=== PATIENT | male | born 1985 | race Caucasian/White ===

== ENCOUNTER 2017-02-14 14:05 | Emergency (ER) | payer SELFPAY ==
[2017-02-14 14:47] VITALS: BP 123/58
--- OUTSIDE RECORDS SUMMARY | 2017-02-14 15:25 | XMS REPORT | Continuity of Care Document ---
:1985 Author Organization [facility] ([facility]) Address [address] [place] [address] Phone [phone] Care Team Providers Name Role Phone Unavailable Primary Care Provider Unavailable Source Comments This disclosure is being made pursuant to the Care Everywhere program, applicable federal and state laws, and may not contain all informaitonavailable regarding this patient.[facility] ([facility]) Active Allergies and Adverse Reactions Not on File Current Medications Not on file Active Problems Not on file Social History Tobacco Use Types Packs/Day Years Used Date Never Assessed Plan of Care Health Maintenance Due Date Last Done Comments Hepatitis B Vaccine (1 of 3 - Primary Series) 1985 Tdap Vaccine 1994 Lipid Disorder Screening 2001 MMR Vaccine 2001 Td Vaccine 2001 Varicella Vaccine (1 of 2 - Adult - No Evidence of 2001 Immunity) Influenza Vaccine: Seasonal (#1) 06/14/2016 Results from Last 3 Months Not on file
--- NOTE | 2017-02-14 16:39 | ERNOTE ---
Psychological HPI - Date Date of Service: 02/14/17 - pt was seen at 1410 today - General Chief Complaint: Anxiety Source: Reports: patient - Immun/Allergies/Home Medications Allergies/Adverse Reactions: Allergies Penicillins Allergy (Severe, Verified 02/14/17 14:47) Anaphylaxis amoxicillin [Amoxicillin] Allergy (Verified 02/14/17 14:47) Home Medications: HOME MEDICATIONS ALPRAZolam [Xanax] 2 mg PO TID PRN 11/11/16 [Last Taken Unknown] Carisoprodol [Soma] 350 mg PO QID 11/11/16 [Last Taken Unknown] - History of Present Illness Narrative: Patient comes into the emergency room asking for his Xanax. Patient states that his doctor, Dr. Groves gives him 2 mg of Xanax 3 times a day he has been taking this dose for the past 10 years. I asked the patient when he saw Dr. Groves he is unable to tell me when it was, in fact this patient is unable to tell me if Dr. Groves is a male or female. Time Seen by Provider: 02/14/17 15:05 Review of Systems - Review of Systems Constitutional: Present: other - patient repeatedly asks for, "I need my Xanax and " Respiratory: Present: no symptoms reported Cardiology: Present: no symptoms reported Neurological: Present: other - patient states he feels shaky. - Patient's Past Medical History Patient History - Medical: Anxiety Patient History - Cardiac/Respiratory: No pertinent hx Patient History - Cancer: No Hx of Cancer Patient History - Surgical Procedures: Other Patient History - Other: None - Social History Living Situations: other Abuse History: No History of abuse Psych History: Hx of Anxiety, Current tx/ever been on anti-depressants or anti- anxiety meds Does anyone smoke in the home?: Yes Alcohol Use: occasionally Drug Use: none - Immunizations Immunizations Up to Date: Yes Hx Pneumococcal Vaccination: More Information Required to Determine History of Influenza Vaccine: More Information Required to Determine Physical Exam - Physical Exam General Appearance: Present: wd/wn, alert, no apparent distress Ears, Nose, Throat: Present: normal ENT inspection Neck: Present: normal inspection, nontender Respiratory: Present: no respiratory distress, normal breath sounds, no accessory muscle use, chest nontender, lungs clear Cardiovascular/Chest: Present: regular rate, rhythm, no murmur, normal peripheral pulses Neurological Exam: Present: other - this patient is completely neurologically normal her when I enter the room patient starts to shake voluntarily. Patient is distracted he does not have any tremors or shaking. I suddenly surprised the patient by opening the door he is resting comfortably on the exam table without any tremors whatsoever. ED Progress - Vital Signs Patient's Vital Signs:: I have reviewed the patient's vital signs. Vital Signs: Vital Signs 02/14/17 14:29 Temperature 36.4 C L Pulse Rate 98 Respiratory 20 Rate Blood Pressure 123/58 O2 Sat by Pulse 99 Oximetry - Progress/Reassessment Chief Complaint: Anxiety Plan - Plan Plan: Discussed this case with the patient, I informed him that I would need to know what is in his system before I can give him a controlled substance. I asked for him to submit a urine and blood for alcohol content and controlled substance content. Patient flat out refused and decided to sign out AGAINST MEDICAL ADVICE and go to another facility. This patient's medical screening examination revealed the patient was medically stable at this time. Departure Clinical Impression: Drug-seeking behavior - Departure Disposition: Against medical advice Condition: Fair
== END 2017-02-14 15:24 | disposition left against medical advice (07) ==
LOC: ER 14:05
DX: Z76.5 Malingerer [conscious simulation] (principal); Z53.29 Procedure and treatment not carried out because of patient's decision for other reasons

== ENCOUNTER 2017-04-28 16:14 | Emergency (ER) | payer SELFPAY ==
[2017-04-28 16:22] VITALS: BP 103/30
[2017-04-28] MEDS ORDERED: NORMAL SALINE 1,000 ML IV ONE (16:36)
--- OUTSIDE RECORDS SUMMARY | 2017-04-28 16:43 | XMS REPORT | Continuity of Care Document ---
:1985 Author Organization [facility] ([facility]) Address [place] [address] Phone [phone] Care Team Providers Name Role Phone Unavailable Primary Care Provider Unavailable Source Comments This disclosure is being made pursuant to the Care Everywhere program, applicable federal and state laws, and may not contain all informaitonavailable regarding this patient.[facility] ([facility]) Active Allergies and Adverse Reactions Not on [...]
[2017-04-28 16:48] LABS: Hemoglobin 15.6 gm/dL (13.5-18.0); Mean Cell Volume 89.5 fl (78-100); Mean Corpuscular Hemoglobin 30.4 pg (27-31); Mean Corpuscular Hgb Conc 33.9 g/dl (32-36); Mean Platelet Volume 9.7 fl (6.0-9.5); Neutrophil # 4.3 K/mm3 (1.3-6.0); Neutrophil % 49.2 % (42-75.0); Platelet Count 271 K/mm3 (150-450); Red Blood Count 5.14 M/mm3 (4.7-6.0); Red Cell Distribution Width 12.9 % (11.5-14.0); White Blood Count 8.8 K/mm3 (4.0-10.5)
--- NOTE | 2017-04-28 16:59 | ERNOTE ---
Medical Problem HPI - Narrative Date of Service: 04/28/17 - General Chief Complaint: General Assessment Time Seen by Provider: 04/28/17 16:26 Source: patient Exam Limitations: no limitations - Immun/Allergies/Home Medications Immunizations: IMMUNIZATION HX Immunizations Up to Date Yes History of Influenza Vaccine No Hx Pneumococcal Vaccination No Allergies/Adverse Reactions: Allergies Penicillins Allergy (Severe, Verified 04/28/17 16:23) Anaphylaxis amoxicillin [Amoxicillin] Allergy (Verified 04/28/17 16:23) Home Medications: HOME MEDICATIONS ALPRAZolam [Xanax] 2 mg PO TID PRN 11/11/16 [Last Taken Unknown] Carisoprodol [Soma] 350 mg PO QID 11/11/16 [Last Taken Unknown] - History of Present History Narrative: Pt. comes in with c/o feeling weak and shaky after he was at work today. Pt. states that he only drinks pepsi and has not had water in 3 days. Pt. states that he does this at least once a year and improves with IV fluids. Review of Systems - Review of Systems Constitutional: Present: fatigue, malaise. Absent: recent illness, fever, chills, weight loss EYE: Present: no symptoms reported ENT: Present: no symptoms reported Respiratory: Present: no symptoms reported. Absent: shortness of breath, cough , wheezing Cardiology: Present: no symptoms reported. Absent: chest pain, palpitations, edema Gastrointestinal/Abdominal: Present: no symptoms reported. Absent: nausea, vomiting, diarrhea, abdominal pain Genitourinary: Present: no symptoms reported Musculoskeletal: Present: no symptoms reported. Absent: back pain, joint pain Skin: Present: no symptoms reported Neurological: Present: tremors. Absent: dizziness/light-headedness, numbness, tingling All Other Systems: All systems neg except as marked - Patient's Past Medical History Patient History - Medical: Anxiety Patient History - Cardiac/Respiratory: Asthma Patient History - Cancer: No Hx of Cancer Patient History - Surgical Procedures: Other Patient History - Other: None - Social History Living Situations: home Abuse History: No History of abuse Psych History: Hx of Anxiety, Current tx/ever been on anti-depressants or anti- anxiety meds Does anyone smoke in the home?: Yes Smoking Status: Current every day smoker Alcohol Use: occasionally Drug Use: none - Immunizations Immunizations Up to Date: Yes Hx Pneumococcal Vaccination: No History of Influenza Vaccine: No Physical Exam - Physical Exam General Appearance: Present: wd/wn, alert, no apparent distress Eye Exam: Normal inspection: bilateral, PERRL: bilateral, EOMI: bilateral Respiratory: Present: no respiratory distress, normal breath sounds, no accessory muscle use, chest nontender, lungs clear Cardiovascular/Chest: Present: regular rate, rhythm, no murmur, normal peripheral pulses Back Exam: Present: normal inspection, normal range of motion, no CVA tenderness , no vertebral tenderness Extremity Exam: Present: normal inspection, non-tender, normal range of motion, no edema Neurological Exam: Present: alert, oriented, no motor/sensory deficits, other - anxious Skin Exam: Present: normal color, warm/dry. Absent: pallor, skin rash ED Progress - Date and Time Seen: Date and Time: 04/28/17 16:55 pt. 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 Stressed to pt. that we need the tests to prove that he is just dehydrated and that there is not something worse. Pt. chose to leave [facility] and was encouraged t return after he picked up his daughter. - Vital Signs Patient's Vital Signs:: I have reviewed the patient's vital signs. Vital Signs: Vital Signs 04/28/17 16:18 Temperature 36.5 C Pulse Rate 105 H Respiratory 20 Rate Blood Pressure 103/30 O2 Sat by Pulse 100 Oximetry - Progress/Reassessment Chief Complaint: General Assessment Departure - Departure Clinical Impression: Malaise Disposition: Against medical advice Condition: Fair Referrals: Darline Richey, PAC [Primary Care Provider] -
[2017-04-28 17:09] LABS: Albumin * 4.1 gm/dl (3.4-5.0); Anion Gap 10.8 mmol/L (6.8-13.8); BUN/Creatinine Ratio 12.5 (9.0-21.6); Bilirubin, Total 0.5 mg/dL (0.0-1.1); Ca. Corrected For Albumin 8.8 mg/dL (8.4-10.2); Calcium * 9.2 mg/dL (7.9-10.9); Carbon Dioxide 30.3 mmol/L (24-32.6); Potassium 4.1 mmol/L (3.4-4.6); Total Protein 7.7 gm/dL (6.2-8.2)
== END 2017-04-28 16:56 | disposition left against medical advice (07) ==
LOC: ER 16:14
DX: R53.83 Other fatigue (principal); R53.1 Weakness; F17.210 Nicotine dependence, cigarettes, uncomplicated

== ENCOUNTER 2017-06-06 08:12 | Emergency (ER) | payer OTHER ==
[2017-06-06] MEDS ORDERED: KETOROLAC TROMETHAMINE 30 MG/ML VIAL IV ONE (08:59)
[2017-06-06] MEDS ORDERED: ONDANSETRON HCL/PF 2 MG/ML VIAL IV ONE (08:59)
[2017-06-06] MEDS ORDERED: NORMAL SALINE 1,000 ML IV ONE (08:59)
[2017-06-06] MEDS ORDERED: ONDANSETRON HCL/PF 2 MG/ML VIAL ONE (09:03)
[2017-06-06] MEDS ORDERED: KETOROLAC TROMETHAMINE 30 MG/ML VIAL ONE (09:03)
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
--- OUTSIDE RECORDS SUMMARY | 2017-06-06 09:21 | XMS REPORT | Summary of Care ---
:1985 Author Organization [facility] Address [address] [place] [id number] Care Team Providers Name Role Phone Carmencita Groves Primary Care Physician Encounter Date(s): 03/04/17 - 03/04/[address] [phone]- [place] Discharge Disposition: 01 Discharged to Home or Self Care Attending Physician: Carmencita Groves DNP Referring Physician: Carmencita Groves DNP Vital Signs No data available for this section Problem List Condition Effective Dates Status Health Status Informant Asthma(Confirmed) Active Cervical spondylosis(Confirmed) Active Muscle spasm(Confirmed) Active PTSD - Post-traumatic stress Active disorder(Confirmed) 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) Allergies, Adverse Reactions, Alerts Substance Reaction Severity Status acetaminophen C/O - vomiting Active amoxicillin Active Excedrin Migraine C/O - vomiting Active Nausea penicillin Active Zoloft Suicidal thoughts Active Medications albuterol 90 mcg/inh inhalation powder 1 puff(s), Inhale, q4hr interval, PRN as needed for shortness of breath or wheezing, # 18 gm, 0 Refill(s), Start Date: 06/07/16 11:44:00 CDT, Pharmacy: [place], [place] Start Date: 06/07/16 Stop Date: 06/29/16 Status: Completedalbuterol 90 mcg/inh inhalation powder 1 puff(s), Inhale, q4hr interval, PRN as needed for shortness of breath or wheezing, # 18 gm, 1 Refill(s), Start Date: 06/29/16 14:46:23 CDT, Pharmacy: [place], [place] Start Date: 06/29/16 Stop Date: 08/04/16 Status: Completedalbuterol 90 mcg/inh inhalation powder 1 puff(s), Inhale, q4hr interval, PRN as needed for shortness of breath or wheezing, # 18 gm, 0 Refill(s), Start Date: 08/04/16 12:27:43 CDT, Pharmacy: [place] Start Date: 08/04/16 Stop Date: 09/07/16 Status: Completedalbuterol 90 mcg/inh inhalation powder 1 puff(s), Inhale, q4hr interval, PRN as needed for shortness of breath or wheezing, # 18 gm, 0 Refill(s), Start Date: 09/07/16 13:41:15 CDT, Pharmacy: [place] Start Date: 09/07/16 Status: Orderedalbuterol HFA 0 Refill(s), Start Date: 10/21/14 11:22:00 BEHAVIOR CLINICIAN Start Date: 10/21/14 Stop Date: 04/04/15 Status: DiscontinuedALPRAZolam 2 mg oral tablet 1 tab(s), Oral, TID, PRN for anxiety, # 90 tab(s), 2 Refill(s), Start Date: 07/29 13:06:35 CDT, called to pharmacy (Rx) Start Date: 07/23/15 Stop Date: 10/15/15 Status: CompletedALPRAZolam 2 mg oral tablet 1 tab(s), Oral, TID, PRN for anxiety, # 90 tab(s), 1 Refill(s), Start Date: 12:11:52 CDT, called to pharmacy (Rx) Start Date: 05/28/15 Stop Date: 07/23/15 Status: CompletedALPRAZolam 2 mg oral tablet 1 tab(s), Oral, TID, PRN for anxiety, # 10 tab(s), 0 Refill(s), Start Date: 16:35:00 CDT, called to pharmacy (Rx) Start Date: 02/09/17 Status: OrderedALPRAZolam 2 mg oral tablet 1 tab(s), Oral, TID, PRN for anxiety, # 90 tab(s), 0 Refill(s), Start Date: 13:54:00 CDT Start Date: 04/04/15 Stop Date: 04/28/15 Status: CompletedALPRAZolam 2 mg oral tablet 1 tab(s), Oral, TID, PRN for anxiety, # 90 tab(s), 0 Refill(s), Start Date: 12:08:36 CDT, called to pharmacy (Rx) Start Date: 04/13/16 Stop Date: 05/11/16 Status: CompletedALPRAZolam 2 mg oral tablet 1 tab(s), Oral, TID, PRN for anxiety, # 90 tab(s), 1 Refill(s), Start Date: 8:59:49 CDT, called to pharmacy (Rx) Start Date: 05/11/16 Stop Date: 06/29/16 Status: CompletedALPRAZolam 2 mg oral tablet 1 tab(s), Oral, TID, PRN for anxiety, # 90 tab(s), 1 Refill(s), Start Date: 12:39:01 CDT, called to pharmacy (Rx) Start Date: 04/28/15 Stop Date: 05/28/15 Status: CompletedALPRAZolam 2 mg oral tablet 1 tab(s), Oral, TID, PRN for anxiety, # 90 tab(s), 0 Refill(s), Start Date: 12:28:14 CDT, called to pharmacy (Rx) Start Date: 08/04/16 Stop Date: 09/07/16 Status: CompletedALPRAZolam 2 mg oral tablet 1 tab(s), Oral, TID, PRN for anxiety, # 90 tab(s), 0 Refill(s), Start Date: 15:01:03 CDT, called to pharmacy (Rx) Start Date: 06/29/16 Stop Date: 08/04/16 Status: CompletedALPRAZolam 2 mg oral tablet 1 tab(s), Oral, TID, PRN for anxiety, # 90 tab(s), 0 Refill(s), Start Date: 02/28 8:06:01 CDT, called to pharmacy (Rx) Start Date: 4/4/17 Stop Date: 03/17/17 Status: OrderedALPRAZolam 2 mg oral tablet 1 tab(s), Oral, TID, PRN for anxiety, # 90 tab(s), 5 Refill(s), Start Date: 12/29 16:47:46 BEHAVIOR CLINICIAN, called to pharmacy (Rx) Start Date: 10/15/15 Stop Date: 04/13/16 Status: CompletedALPRAZolam 2 mg oral tablet 1 tab(s), Oral, TID, PRN for anxiety, X 5 days, # 15 tab(s), 0 Refill(s), Start Date: 09/07/16 13:39:46 CDT, called to pharmacy (Rx) Start Date: 09/07/16 Stop Date: 09/07/16 Status: CompletedALPRAZolam 2 mg oral tablet 1 tab(s), Oral, TID, PRN for anxiety, X 30 days, # 90 tab(s), 5 Refill(s), Start Date: 09/07/16 15:24:08 CDT Start Date: 09/07/16 Stop Date: 02/15/17 Status: CompletedALPRAZolam 2 mg oral tablet 1 tab(s), Oral, TID, PRN for anxiety, 0 Refill(s), Start Date: 10/21/14 11:24: 00 BEHAVIOR CLINICIAN Start Date: 10/21/14 Stop Date: 04/04/15 Status: Discontinuedgabapentin 300 mg oral capsule 1 cap(s), Oral, TID, # 90 cap(s), 0 Refill(s), Start Date: 11/22/14 11:39:38 BEHAVIOR CLINICIAN , Pharmacy: [place], [place] Start Date: 11/22/14 Stop Date: 04/04/15 Status: Discontinuedgabapentin 300 mg oral capsule 1 cap(s), Oral, TID, # 90 cap(s), 3 Refill(s), Start Date: 07/23/15 12:25:19 CDT , Pharmacy: [place] Start Date: 07/23/15 Stop Date: 10/15/15 Status: Completedgabapentin 300 mg oral capsule 1 cap(s), Oral, TID, # 90 cap(s), 3 Refill(s), Start Date: 07/01/15 15:35:43 CDT , Pharmacy: [place] Start Date: 07/01/15 Stop Date: 07/23/15 Status: Completedgabapentin 300 mg oral capsule 1 cap(s), Oral, TID, # 90 cap(s), 0 Refill(s), Start Date: 04/04/15 13:54:59 CDT , Pharmacy: [place] Start Date: 04/04/15 Stop Date: 04/28/15 Status: Completedgabapentin 300 mg oral capsule 1 cap(s), Oral, TID, # 90 cap(s), 1 Refill(s), Start Date: 05/28/15 12:10:15 CDT , Pharmacy: [place] Start Date: 05/28/15 Stop Date: 07/01/15 Status: Completedgabapentin 300 mg oral capsule 1 cap(s), Oral, TID, # 90 cap(s), 0 Refill(s), Start Date: 10/21/14 15:46:00 BEHAVIOR CLINICIAN , other reason (Rx) Start Date: 10/21/14 Stop Date: 11/22/14 Status: Completedgabapentin 300 mg oral capsule 1 cap(s), Oral, TID, # 90 cap(s), 1 Refill(s), Start Date: 04/28/15 12:40:35 CDT , called to pharmacy (Rx) Start Date: 04/28/15 Stop Date: 05/28/15 Status: Completedgabapentin 300 mg oral capsule 1 cap(s), Oral, TID, # 90 cap(s), 11 Refill(s), Start Date: 10/15/15 16:47:00 BEHAVIOR CLINICIAN, Pharmacy: [place] Start Date: 10/15/15 Stop Date: 05/10/16 Status: DiscontinuedMedrol Dosepak 4 mg oral tablet 1 packet(s), Oral, Per Package Label, as directed on package labeling, # 21 tab( s), 0 Refill(s), Start Date: 12/17/14 15:43:00 BEHAVIOR CLINICIAN, Pharmacy: [place], [place] Special Instructions: as directed on package labeling Start Date: 12/17/14 Stop Date: 04/04/15 Status: DiscontinuedNorco 5 mg-325 mg oral tablet 1 tab(s), Oral, q4hr interval, take 1 tab po q 4-6 hrs prn pain, # 60 tab(s), 0 Refill(s), Start Date: 10/21/14 15:44:00 BEHAVIOR CLINICIAN, other reason (Rx) Special Instructions: take 1 tab po q 4-6 hrs prn pain Start Date: 10/21/14 Stop Date: 04/04/15 Status: DiscontinuedpredniSONE Oral, BID, 0 Refill(s), Start Date: 10/21/14 11:24:00 BEHAVIOR CLINICIAN Start Date: 10/21/14 Stop Date: 04/04/15 Status: DiscontinuedProAir HFA 90 mcg/inh inhalation aerosol 1 puff(s), Inhale, q4hr, PRN for wheezing, # 9 gm, 3 Refill(s), Start Date: 13:55:00 CDT, Pharmacy: [place] Start Date: 04/04/15 Stop Date: 05/28/15 Status: CompletedProAir HFA 90 mcg/inh inhalation aerosol 1 puff(s), Inhale, q4hr, PRN for wheezing, # 9 gm, 3 Refill(s), Start Date: 07/29 12:23:17 CDT, Pharmacy: [place] Start Date: 07/23/15 Stop Date: 06/07/16 Status: CompletedProAir HFA 90 mcg/inh inhalation aerosol 1 puff(s), Inhale, q4hr, PRN for wheezing, # 9 gm, 3 Refill(s), Start Date: 12:09:58 CDT, Pharmacy: [place] Start Date: 05/28/15 Stop Date: 07/23/15 Status: Completedsertraline 1 tab, Oral, Daily, 0 Refill(s), Start Date: 10/21/14 11:24:00 BEHAVIOR CLINICIAN Start Date: 10/21/14 Stop Date: 04/04/15 Status: DiscontinuedSoma 350 mg oral tablet 1 tab(s), Oral, QID, # 120 tab(s), 2 Refill(s), Start Date: 07/23/15 13:07:07 CDT, called to pharmacy (Rx) Start Date: 07/23/15 Stop Date: 10/15/15 Status: CompletedSoma 350 mg oral tablet 1 tab(s), Oral, QID, # 120 tab(s), 0 Refill(s), Start Date: 04/04/15 13:54:00 CDT Start Date: 04/04/15 Stop Date: 04/28/15 Status: CompletedSoma 350 mg oral tablet 1 tab(s), Oral, QID, # 120 tab(s), 0 Refill(s), Start Date: 04/13/16 12:10:33 CDT, called to pharmacy (Rx) Start Date: 04/13/16 Stop Date: 05/11/16 Status: CompletedSoma 350 mg oral tablet 1 tab(s), Oral, QID, # 120 tab(s), 1 Refill(s), Start Date: 04/28/15 12:40:14 CDT, called to pharmacy (Rx) Start Date: 04/28/15 Stop Date: 05/13/15 Status: CompletedSoma 350 mg oral tablet 1 tab(s), Oral, QID, # 120 tab(s), 0 Refill(s), Start Date: 08/04/16 12:28:33 CDT, called to pharmacy (Rx) Start Date: 08/04/16 Stop Date: 09/07/16 Status: CompletedSoma 350 mg oral tablet 1 tab(s), Oral, QID, # 120 tab(s), 0 Refill(s), Start Date: 06/29/16 15:01:20 CDT, called to pharmacy (Rx) Start Date: 06/29/16 Stop Date: 08/04/16 Status: CompletedSoma 350 mg oral tablet 1 tab(s), Oral, QID, # 120 tab(s), 1 Refill(s), Start Date: 05/28/15 12:18:16 CDT, called to pharmacy (Rx) Start Date: 05/28/15 Stop Date: 07/23/15 Status: CompletedSoma 350 mg oral tablet 1 tab(s), Oral, QID, # 120 tab(s), 5 Refill(s), Start Date: 10/15/15 16:48:30 BEHAVIOR CLINICIAN, called to pharmacy (Rx) Start Date: 10/15/15 Stop Date: 04/13/16 Status: CompletedSoma 350 mg oral tablet 1 tab(s), Oral, QID, # 120 tab(s), 0 Refill(s), Start Date: 05/13/15 14:04:51 CDT, called to pharmacy (Rx) Start Date: 05/13/15 Stop Date: 05/28/15 Status: CompletedSoma 350 mg oral tablet 1 tab(s), Oral, QID, X 5 days, # 20 tab(s), 0 Refill(s), Start Date: 09/07/16 13 :40:01 CDT, called to pharmacy (Rx) Start Date: 09/07/16 Stop Date: 09/07/16 Status: CompletedSoma 350 mg oral tablet 1 tab(s), Oral, QID, # 120 tab(s), 5 Refill(s), Start Date: 09/07/16 15:24:37 CDT Start Date: 09/07/16 Status: OrderedSoma 350 mg oral tablet 1 tab(s), Oral, QID, 0 Refill(s), Start Date: 04/04/15 13:36:00 CDT Start Date: 04/04/15 Stop Date: 04/04/15 Status: DiscontinuedSoma 350 mg oral tablet 1 tab(s), Oral, QID, # 120 tab(s), 1 Refill(s), Start Date: 05/11/16 9:01:28 CDT , called to pharmacy (Rx) Start Date: 05/11/16 Stop Date: 06/29/16 Status: CompletedSymbicort 160 mcg-4.5 mcg/inh inhalation aerosol 2 puff(s), Inhale, BID, X 30 days, # 10 gm, 1 Refill(s), Start Date: 06/29/16 14 :46:33 CDT, Pharmacy: [place], [place] Start Date: 06/29/16 Stop Date: 08/04/16 Status: CompletedSymbicort 160 mcg-4.5 mcg/inh inhalation aerosol 2 puff(s), Inhale, BID, X 30 days, # 10 gm, 2 Refill(s), Start Date: 05/10/16 15 :27:41 CDT, Pharmacy: [place] Start Date: 05/10/16 Stop Date: 06/29/16 Status: CompletedSymbicort 160 mcg-4.5 mcg/inh inhalation aerosol 2 puff(s), Inhale, BID, # 1 EA, 0 Refill(s), Start Date: 08/04/16 12:27:53 CDT, Pharmacy: [place] Start Date: 08/04/16 Stop Date: 09/07/16 Status: CompletedSymbicort 160 mcg-4.5 mcg/inh inhalation aerosol 2 puff(s), Inhale, BID, # 1 EA, 0 Refill(s), Start Date: 09/07/16 13:41:23 CDT, Pharmacy: [place] Start Date: 09/07/16 Status: OrderedSymbicort 160 mcg-4.5 mcg/inh inhalation aerosol 2 puff(s), Inhale, BID, # 10 gm, 2 Refill(s), Start Date: 10/06/15 13:45:00 BEHAVIOR CLINICIAN , Pharmacy: [place] Start Date: 10/06/15 Stop Date: 05/10/16 Status: DiscontinuedtraMADol 50 mg oral tablet 1 tab(s), Oral, q8hr interval, PRN for pain, # 90 tab(s), 0 Refill(s), Start Date: 01/17/15 10:16:00 BEHAVIOR CLINICIAN, Pharmacy: [place] Start Date: 01/17/15 Stop Date: 04/04/15 Status: DiscontinuedtraMADol 50 mg oral tablet 1 tab(s), Oral, q8hr interval, PRN for pain, X 30 days, # 90 tab(s), 0 Refill(s) , Start Date: 04/04/15 13:55:02 CDT Start Date: 04/04/15 Stop Date: 04/28/15 Status: CompletedtraMADol 50 mg oral tablet 1 tab(s), Oral, q8hr interval, PRN for pain, # 90 tab(s), 0 Refill(s), Start Date: 04/13/16 12:10:47 CDT, called to pharmacy (Rx) Start Date: 04/13/16 Stop Date: 05/10/16 Status: DiscontinuedtraMADol 50 mg oral tablet 1 tab(s), Oral, q4hr, PRN for pain, # 30 tab(s), 0 Refill(s), Start Date: 13:43:00 BEHAVIOR CLINICIAN, called to pharmacy (Rx) Start Date: 10/23/14 Stop Date: 04/04/15 Status: DiscontinuedtraMADol 50 mg oral tablet 1 tab(s), Oral, q8hr interval, PRN for pain, X 30 days, # 90 tab(s), 1 Refill(s) , Start Date: 04/28/15 12:40:59 CDT, called to pharmacy (Rx) Start Date: 04/28/15 Stop Date: 05/28/15 Status: CompletedtraMADol 50 mg oral tablet 1 tab(s), Oral, q8hr interval, PRN for pain, X 30 days, # 90 tab(s), 1 Refill(s) , Start Date: 05/28/15 12:19:28 CDT, called to pharmacy (Rx) Start Date: 05/28/15 Stop Date: 07/23/15 Status: CompletedtraMADol 50 mg oral tablet 1 tab(s), Oral, q8hr interval, PRN for pain, X 30 days, # 90 tab(s), 5 Refill(s) , Start Date: 10/15/15 16:48:49 BEHAVIOR CLINICIAN, called to pharmacy (Rx) Start Date: 10/15/15 Stop Date: 04/13/16 Status: CompletedtraMADol 50 mg oral tablet 1 tab(s), Oral, q4hr, PRN for pain, 0 Refill(s), Start Date: 10/21/14 11:24:00 BEHAVIOR CLINICIAN Start Date: 10/21/14 Stop Date: 10/23/14 Status: DiscontinuedtraMADol 50 mg oral tablet 1 tab(s), Oral, q8hr interval, PRN for pain, X 30 days, # 90 tab(s), 2 Refill(s) , Start Date: 07/23/15 13:07:27 CDT, called to pharmacy (Rx) Start Date: 07/23/15 Stop Date: 10/15/15 Status: Completed Results No data available for this section Immunizations No data available for this section Procedures Procedure Date Related Diagnosis Body Site Procedure on left hand1 2004 1x2 surgeries Social History No data available for this section Assessment and Plan No data available for this section
[2017-06-06 10:19] LABS: Urine Bilirubin Negative (NEGATIVE); Urine Blood 250 /ul (NEGATIVE); Urine Ketone Negative (NEGATIVE); Urine Nitrite Negative (NEGATIVE); Urine Protein Negative (NEGATIVE); Urine Specific Gravity 1.025 SP.GR. (1.005-1.030); Urine Urobilinogen Normal (NORMAL)
[2017-06-06 10:29] LABS: Urine Appearance Slightly Cloudy; Urine Bacteria TRACE; Urine Color Yellow; Urine WBC TRACE /hpf (0-5)
[2017-06-06 10:30] LABS: Urine RBC TRACE /hpf (0-5)
[2017-06-06 10:33] LABS: Cocaine Ur Negative (NEGATIVE); Urine Barbiturate Negative (NEGATIVE); Urine Benzodiazepines Negative (NEGATIVE); Urine Opiates Negative (NEGATIVE); Urine PCP Negative (NEGATIVE); Urine THC Positive (NEGATIVE)
[2017-06-06] MEDS ORDERED: HYDROmorphone HCL 1 MG/ML DISP.SYRIN ONE (12:13)
[2017-06-06] MEDS ORDERED: HYDROmorphone HCL 1 MG/ML DISP.SYRIN IV ONE (12:17)
[2017-06-06 12:21] VITALS: BP 106/68
[2017-06-06] MEDS ORDERED: TAMSULOSIN HCL 0.4 MG CAP.SR.24H PO ONE ×2 (12:30→12:32)
== END 2017-06-06 12:43 | disposition home or self-care (01) ==
LOC: ER 08:12
DX: N23 Unspecified renal colic (principal); F17.200 Nicotine dependence, unspecified, uncomplicated
CPT/HCPCS: 72110; 74176; 80307; 81001; 96374; 96375; 99283; J2405

== ENCOUNTER 2017-07-09 22:11 | Emergency (ER) | payer OTHER ==
[2017-07-09] MEDS: NORMAL SALINE 1,000 ML IV ONE ×2 (22:11→22:44)
[2017-07-09] MEDS ORDERED: DIPHTH,PERTUSS(ACELL),TET VAC 0.5 ML VIAL IM ONE (22:31)
[2017-07-09 22:32] LABS: Hematocrit 43.8 % (42.0-52.0); Hemoglobin 14.7 gm/dL (13.5-18.0); Mean Cell Volume 91.6 fl (78-100); Mean Corpuscular Hemoglobin 30.8 pg (27-31); Mean Corpuscular Hgb Conc 33.6 g/dl (32-36); Mean Platelet Volume 10.1 fl (6.0-9.5); Neutrophil # 6.3 K/mm3 (1.3-6.0); Neutrophil % 57.4 % (42-75.0); Platelet Count 318 K/mm3 (150-450); Red Blood Count 4.78 M/mm3 (4.7-6.0); Red Cell Distribution Width 13.4 % (11.5-14.0); White Blood Count 10.9 K/mm3 (4.0-10.5)
[2017-07-09] MEDS: DIPHTH,PERTUSS(ACELL),TET VAC 0.5 ML VIAL IM ONE (22:32)
[2017-07-09 22:41] LABS: Anion Gap 17.2 mmol/L (6.8-13.8); BUN/Creatinine Ratio 14.2 (9.0-21.6); Bilirubin, Total 0.9 mg/dL (0.0-1.1); Ca. Corrected For Albumin 8.6 mg/dL (8.4-10.2); Calcium * 8.9 mg/dL (7.9-10.9); Carbon Dioxide 22.6 mmol/L (24-32.6); Potassium 3.8 mmol/L (3.4-4.6); Total Protein 7.2 gm/dL (6.2-8.2)
[2017-07-09] MEDS: CIPROFLOXACIN IN 5 % DEXTROSE 400 MG/200 ML BAG IV SCH (22:42)
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
[2017-07-09 22:51] LABS: Cocaine Ur Negative (NEGATIVE); Urine Barbiturate Negative (NEGATIVE); Urine Benzodiazepines Positive (NEGATIVE); Urine Opiates Negative (NEGATIVE); Urine PCP Negative (NEGATIVE); Urine THC Positive (NEGATIVE)
[2017-07-09] MEDS ORDERED: ONDANSETRON HCL/PF 2 MG/ML VIAL ONE (22:57)
[2017-07-09] MEDS ORDERED: HYDROmorphone HCL 1 MG/ML DISP.SYRIN ONE (22:57)
[2017-07-09] MEDS ORDERED: MORPHINE SULFATE 2 MG/ML DISP.SYRIN ONE ×2 (23:17→23:23)
[2017-07-09] MEDS: MORPHINE SULFATE 2 MG/ML DISP.SYRIN IV ONE ×2 (23:18→23:24)
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
[2017-07-10 03:04] VITALS: BP 109/67
== END 2017-07-09 23:50 | disposition short-term general hospital (02) ==
LOC: ER 22:11
PROC: 0T9B70Z Drainage of Bladder with Drainage Device, Via Natural or Artificial Opening (ICD-10-PCS; principal; 2017-07-09)
PROC: 0W9900Z Drainage of Right Pleural Cavity with Drainage Device, Open Approach (ICD-10-PCS; 2017-07-09)
DX: J94.2 Hemothorax (principal); S21.111A Laceration without foreign body of right front wall of thorax without penetration into thoracic cavity, initial encounter; F17.200 Nicotine dependence, unspecified, uncomplicated; Z23 Encounter for immunization; X99.1XXA Assault by knife, initial encounter; Y93.9 Activity, unspecified; Y92.9 Unspecified place or not applicable
CPT/HCPCS: 32551; 36415; 51702; 71010; 71260; 80053; 80307; 85025; 86850; 86900; 90471; 90715; 96365; 99291; G0390; J2405